=== PATIENT | female | born 1990 | race Caucasian/White ===

== ENCOUNTER 2021-04-20 09:04 | Day surgery (SDC) | payer OTHER, MEDICAID ==
[~2021-04-20 09:04] MED LIST: EPINEPHrine 1 MG/ML 30 ML MDV IRR SCH; EPINEPHrine 1 MG/ML SDV ONE; Lidocaine 1%/Sod Bicarbonate in NS 8.4% 1 ML Syringe IDERM PRN; Ropivacaine 0.5% 5 MG/ML 30 ML SDV ONE; Sodium Chloride 0.9% 10 ML Syringe FLUSH PRN
[2021-04-20 09:32] VITALS: PULSE 78
[2021-04-20] MEDS: Lactated Ringers 1,000 ML IV SCH ×2 (09:42→13:14)
[2021-04-20] MEDS ORDERED: Midazolam 1 MG/ML 2 ML SDV ONE (09:52)
[2021-04-20] MEDS ORDERED: fentaNYL 100 MCG/2 ML SDV ONE ×3 (09:52→12:03)
[2021-04-20] MEDS ORDERED: Propofol 200 MG/20 ML SDV ONE ×5 (09:52→11:52)
[2021-04-20] MEDS ORDERED: Ondansetron 4 MG/2 ML SDV ONE (10:03)
[2021-04-20] MEDS ORDERED: Dexamethasone 4 MG/ML 5 ML MDV ONE (10:03)
[2021-04-20] MEDS ORDERED: Lidocaine 1% 4 ML ONE (10:04)
--- NOTE | 2021-04-20 10:19 | PCM.PREANE ---
Preanesthetic Assessment - Procedure Proposed Procedure: Left shoulder video arthroscopy with SLAP repair - Anesthesia/Transfusion/Family Hx Anesthesia History: Prior Anesthesia Without Reaction Family History of Anesthesia Reaction: No Transfusion History: No Prior Transfusion(s) Intubation History: Unknown - Review of Systems General: No Symptoms Pulmonary: No Symptoms Cardiovascular: Palpitations (With panic attacks), Other (Heart murmur when a baby but has resolved since then ) Gastrointestinal: Nausea Neurological: Tingling (Left shoulder intermittent tingling ) Other: Reports: Easy Bruising, Depression, Anxiety - Physical Assessment NPO Status Date: 04/19/21 NPO Status Time: 20:30 Vital Signs: Last Vital Signs Temp 97.4 F 04/20/21 09:00 Pulse 78 04/20/21 09:00 Resp 16 04/20/21 09:00 BP 106/73 04/20/21 09:00 Pulse Ox 97 04/20/21 09:00 Height: 1.68 m Weight: 73.028 kg ASA Class: 2 Mental Status: Alert & Oriented x3 Airway Class: Mallampati = 2 Dentition: Reports: Caries Thyro-Mental Finger Breadths: 3 Mouth Opening Finger Breadths: 3 ROM/Head Extension: Full Lungs: Clear to Auscultation, Normal Respiratory Effort Cardiovascular: Regular Rate, Regular Rhythm, No Murmurs - Imaging/EKG Impressions: History of holter monitor- negative per H and P and patient - Allergies Allergies/Adverse Reactions: Allergies Allergy/AdvReac Type Severity Reaction Status Date / Time cat dander Allergy Airway Verified 04/20/21 09:43 Tightness metoclopramide [From Reglan] AdvReac Anxiety Verified 04/20/21 09:43 prochlorperazine AdvReac Anxiety Verified 04/20/21 09:43 [From Compazine] chloraprep Allergy Rash Uncoded 04/19/21 16:45 steri strips Allergy Rash Uncoded 04/19/21 16:45 - Blood Blood Available: No Product(s) Available: None - Anesthesia Plan Pre-Op Medication Ordered: None - Acknowledgements Anesthesia Type Planned: General Anesthesia, Regional Block Pt an Appropriate Candidate for the Planned Anesthesia: Yes Alternatives and Risks of Anesthesia Discussed w Pt/Guardian: Yes Pt/Guardian Understands and Agrees with Anesthesia Plan: Yes PreAnesthesia Questionnaire - Past Health History Medical/Surgical History: Denies Medical/Surgical History HEENT History: Reports: Other (See Below) Other HEENT History: TMJ disorder Cardiovascular History: Reports: Heart Murmur Other Cardiovascular History: Patient stated that she had a heart murmur at and states that she would turn blue. Did wear a Holter monitor in the last because she was passing out. Test was negative. Per H & P. 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 Lost one twin at 7 weeks. Musculoskeletal History: Reports: None, Connective Tissue Disease Other Musculoskeletal History: Questionable connective tissue disease-patient to do follow regarding this Neurological History: Reports: Headaches, Chronic Psychiatric History: Reports: Anxiety, Depression, OCD, PTSD Other Psychiatric History: Post- blues with first Endocrine/Metabolic History: Reports: None Hematologic History: Reports: Anemia Immunologic History: Reports: None Oncologic (Cancer) History: Reports: None Dermatologic History: Reports: None, Other (See Below) Other Dermatologic History: Patient gets hives at times from anxiety - Infectious Disease History Infectious Disease History: Reports: None - Past Surgical History Head Surgeries/Procedures: Reports: None HEENT Surgical History: Reports: Oral Surgery, Tonsillectomy Cardiovascular Surgical History: Reports: None Respiratory Surgical History: Reports: None GI Surgical History: Reports: Cholecystectomy Female Surgical History: Reports: None Male Surgical History: Reports: None Endocrine Surgical History: Reports: None Neurological Surgical History: Reports: None Musculoskeletal Surgical History: Reports: Other (See Below) Other Musculoskeletal Surgeries/Procedures:: right hip arthroscopy Oncologic Surgical History: Reports: None Dermatological Surgical History: Reports: None - SUBSTANCE USE Tobacco Use Status *Q: Never Tobacco User Second Hand Smoke Exposure: No Days Per Week of Alcohol Use: 1 Number of Drinks Per Day: 1 Total Drinks Per Week: 1 Recreational Drug Use History: No - HOME MEDS Home Medications: Home Meds Acetaminophen [Tylenol Extra Strength] 1,000 mg PO Q6H PRN 04/19/21 [History] Aspirin/Acetaminophen/Caffeine [Excedrin Migraine Caplet] 2 tab PO Q6H PRN 04/19/21 [History] Ethinyl Estradiol/Etonogestrel [Nuvaring Vaginal Ring] 1 unit VAG ASDIRECTED 04/19/21 [History] Ibuprofen 400 mg PO Q6H PRN 04/19/21 [History] Hydrocodone/Acetaminophen [HYDROcodone-Acetaminophen 5-325 MG] 1 - 2 each PO Q6H PRN #30 tablet 04/20/21 [Rx] - CURRENT (IN HOUSE) MEDS Current Meds: Current Medications Epinephrine HCl (Epinephrine 1 Mg/Ml 30 Ml Mdv) 3 mg IRR ONETIME CARLIE Lactated Ringer's (Ringers, Lactated) 1,000 mls @ 125 mls/hr IV ASDIRECTED CARLIE Stop: 04/20/21 23:00 Last Admin: 04/20/21 09:42 Dose: 125 mls/hr Documented by: Lidocaine/Sodium Bicarbonate (Lidocaine 1%/Sod Bicarbonate In Ns 8.4% 1 Ml Syringe) 0.25 ml IDERM ONETIME PRN PRN Reason: Prior to IV Start Stop: 04/20/21 18:00 Last Admin: 04/20/21 09:15 Dose: 0.25 ml Documented by: Sodium Chloride (Sodium Chloride 0.9% 10 Ml Syringe) 10 ml FLUSH ASDIRECTED PRN PRN Reason: Keep Vein Open Stop: 04/20/21 18:00 Discontinued Medications Dexamethasone (Dexamethasone 4 Mg/Ml 5 Ml Mdv) Confirm Administered Dose 20 mg .ROUTE .STK-MED ONE Stop: 04/20/21 10:04 Epinephrine HCl (Epinephrine 1 Mg/Ml Sdv) Confirm Administered Dose 1 mg .ROUTE .STK-MED ONE Stop: 04/20/21 07:15 Fentanyl (Fentanyl 100 Mcg/2 Ml Sdv) Confirm Administered Dose 100 mcg .ROUTE .STK-MED ONE Stop: 04/20/21 09:53 Lidocaine HCl (Xylocaine-Mpf 1%) Confirm Administered Dose 4 mls @ as directed .ROUTE .STK-MED ONE Stop: 04/20/21 10:05 Lidocaine HCl (Lidocaine 1% 5 Ml Sdv) Confirm Administered Dose 5 ml .ROUTE .STK-MED ONE Stop: 04/20/21 10:06 Midazolam HCl (Midazolam 1 Mg/Ml 2 Ml Sdv) Confirm Administered Dose 2 mg .ROUTE .STK-MED ONE Stop: 04/20/21 09:53 Ondansetron HCl (Ondansetron 4 Mg/2 Ml Sdv) Confirm Administered Dose 4 mg .ROUTE .STK-MED ONE Stop: 04/20/21 10:04 Propofol (Propofol 200 Mg/20 Ml Sdv) Confirm Administered Dose 200 mg .ROUTE .STK-MED ONE Stop: 04/20/21 09:53 Ropivacaine (Ropivacaine 0.5% 5 Mg/Ml 30 Ml Sdv) Confirm Administered Dose 30 ml .ROUTE .STLimundo-MED ONE Stop: 04/20/21 07:15
[2021-04-20] MEDS ORDERED: Albuterol/Ipratropium 3.0-0.5 MG/3 ML Neb Soln NEB SCH (10:20)
[2021-04-20] MEDS ORDERED: ceFAZolin 1 GM Vial ONE (11:19)
[2021-04-20] MEDS ORDERED: Scopolamine 1.5 MG Transdermal Patch TOP ONE (11:30)
[2021-04-20] MEDS ORDERED: Ondansetron 4 MG/2 ML SDV IVPUSH PRN (12:55)
[2021-04-20] MEDS ORDERED: HYDROmorphone 0.5 MG/0.5 ML Syringe IVPUSH PRN (12:55)
[2021-04-20] MEDS ORDERED: fentaNYL 100 MCG/2 ML SDV IVPUSH PRN (12:55)
--- NOTE | 2021-04-20 12:56 | PCM.POSTAN ---
POST ANESTHESIA ASSESSMENT - MENTAL STATUS Mental Status: Somnolent - VITAL SIGNS Vital Signs: Last Vital Signs Temp 36.4 C 04/20/21 12:42 Pulse 78 04/20/21 09:00 Resp 11 L 04/20/21 12:50 BP 105/47 L 04/20/21 12:50 Pulse Ox 99 04/20/21 12:54 - RESPIRATORY Respiratory Status: Respiratory Rate WNL, Airway Patent, O2 Saturation Stable, Supplemental Oxygen - CARDIOVASCULAR CV Status: Pulse Rate WNL, Blood Pressure Stable - GASTROINTESTINAL GI Status: No Symptoms - PAIN Pain Score: 0 - POST OP HYDRATION Hydration Status: Adequate & Stable
[2021-04-20] MEDS ORDERED: diphenhydrAMINE 50 MG/ML SDV IVPUSH ONE (13:44)
[2021-04-20] MEDS ORDERED: diphenhydrAMINE 50 MG/ML SDV ONE (13:46)
--- NOTE | 2021-04-20 14:42 | PCM.SN.2 ---
- Free Text/Narrative Note: Date: 04-20-21 Time Out: 1059 Start: 1100 Stop: 1109 Surgical Procedure: Left shoulder video arthroscopy with SLAP repair Diagnosis : Left shoulder pain Current Procedure: Left interscalene block under US guidance for postoperative pain control requested by Dr. Anders. Patient chart reviewed, risk/benefits discussed with patient, consent obtained. Patient positioned supine, monitors/alarms on, oxygen placed via nasal cannula at 2 LPM. IV sedation administered: Versed 2mg IV, Fentanyl 100mcg IV given in preop prior to block placement. Left shoulder prepped with alcohol prep pads (patient allergic to chloraprep). Sterile drapes placed with aseptic technique noted. Under US guidance, left subclavian artery visualized along with the left brachial plexus. Plexus followed up to C6 cricoid level, and area localized with 2mls of 1% lidocaine. 22gauge 2 inch stimiplex needle advanced under US with 0.6mV with stimulation of biceps and wrist noted. Good stimulation noted with decreased voltage and absent at 0.3mVs. 1ml of Normal Saline injected with loss of stimulation noted to confirm needle not placed intraneurally. Incremental dosing of 5mls with negative aspiration noted prior to each injection of 0.5% ropivacaine with 1:200,000 epinephrine. Total volume=30mls. Rene Romero CRNA
--- NOTE | 2021-04-20 14:43 | PCM48HPAN ---
Post Anesthesia Note - EVALUATION WITHIN 48HRS OF ANESTHETIC Vital Signs in Normal Range: Yes Patient Participated in Evaluation: Yes Respiratory Function Stable: Yes Airway Patent: Yes Cardiovascular Function Stable: Yes Hydration Status Stable: Yes Pain Control Satisfactory: Yes Nausea and Vomiting Control Satisfactory: Yes Mental Status Recovered: Yes Vital Signs: Last Vital Signs Temp 36.2 C 04/20/21 13:30 Pulse 78 04/20/21 09:00 Resp 16 04/20/21 13:30 BP 99/57 L 04/20/21 13:30 Pulse Ox 97 04/20/21 13:30
[2021-04-20 14:44] VITALS: BP 100/64
--- NOTE | 2021-05-03 17:00 | PCM.OPNOTE ---
- General Post-Op/Procedure Note Date of Surgery/Procedure: 04/20/21 Operative Procedure(s): left shoulder video arthroscopy with SLAP repair and limited debridement Pre Op Diagnosis: left shoulder SLAP tear Post-Op Diagnosis: Same Anesthesia Technique: General ET Tube, Regional Block Primary Surgeon: Christiano Anders Anesthesia Provider: Rene Romero Pump Oiler: Jennifer Larsen in mLs: 0 Complications: None Condition: Good
--- NOTE | 2021-05-03 17:35 | OR ---
DATE OF OPERATION: 04/20/2021 SURGEON: Christiano Anders MD OPERATION PERFORMED: Left shoulder video arthroscopy with superior labrum from anterior to posterior tear repair, and limited debridement. PREOPERATIVE DIAGNOSIS: Left shoulder superior labrum from anterior to posterior tear. POSTOPERATIVE DIAGNOSIS: Left shoulder superior labrum from anterior to posterior tear. ANESTHESIA: General endotracheal intubation with regional interscalene block. ANESTHESIA PROVIDER: Rene Romero. MANAGER OF SOFTWARE DEVELOPMENT: Jennifer Larsen PA-C ESTIMATED BLOOD LOSS: 0 mL. COMPLICATIONS: None. CONDITION: Stable. DESCRIPTION OF PROCEDURE: The patient was identified in the preoperative holding area. Proper site was marked and identified by the surgeon. The patient was taken back to the operating theater, where after adequate anesthesia, the patient was placed in a lazy right lateral decubitus position and a wedge was placed posteriorly. The patient was secured to the table. Left upper extremity was then sterilely prepped and draped in the usual sterile fashion. OR time-out was performed. The patient received 2 g IV Ancef. 10 pounds of traction was applied to the left upper extremity. Standard posterior incision was made. Scope trocar was introduced into the glenohumeral joint. With the use of a spinal needle, anterior portal was created from an outside-in technique. The patient was noted to have significant erythema near the attachment of the biceps with fraying and synovitis. At this time, the patient was also noted to have a type 2 SLAP tear. The subscapularis tendon was intact. The rotator cuff showed no pathology, erythema, or tear. There was no chondromalacia of the glenohumeral joint. At this time, a rasp as well as resector was used to roughen the superior and anterior portion of the glenoid, and limited debridement of the synovitis was done at this time as well. After this time, two 2.9 mm Arthrex PushLocks were then placed in the superior and anterior labrum. These were then tightened and was found to have adequate watertight repair of the superior labral tear. At this time, excess saline was drained from the shoulder. 3-0 nylon suture was used for closure of the portal incisions. The patient had a sterile soft dressing applied and was sent to PACU in stable condition. [facility] /[id number]
== END 2021-04-20 14:33 | disposition home or self-care (01) ==
LOC: JD.SDS 09:04
PROVIDERS: ATTEND Orthopaedic Surgery
DX: S43.432A Superior glenoid labrum lesion of left shoulder, initial encounter (principal); M65.812 Other synovitis and tenosynovitis, left shoulder; M25.312 Other instability, left shoulder; Z79.82 Long term (current) use of aspirin; Z79.899 Other long term (current) drug therapy; X58.XXXA Exposure to other specified factors, initial encounter
CPT/HCPCS: 29807; 94640; A9270; C1713; J0171; J0690; J1100; J1200; J2250; J2405; J2704; J2795; J3010; J7120; 01638; 64415; 76942; J7620-GY